=== PATIENT | male | born 1995 | race Caucasian/White ===

== ENCOUNTER 2017-01-16 13:15 | Emergency (ER) | payer OTHER ==
[~2017-01-16] VITALS: Ht 172.7 cm; Wt 69.6 kg
[2017-01-16 13:25] VITALS: TEMP 36.8; Ht 172.7 cm; Wt 69.6 kg
[2017-01-16 14:56] VITALS: PULSE 83
[2017-01-16 15:13] LABS: BASO % 0.4 %; BASO ABS # 0.03 K/uL (0-0.2); COMPLETE YES; EOS % 0.6 %; HEMATOCRIT 51.4 % (42-52); IG% 0.2 %; LYMPH % 28.8 %; LYMPH ABS # 2.37 K/uL (1.2-3.4); MEAN CELL VOLUME 92.3 fL (80-100); MEAN CORPUSCULAR HEMOGLOBIN 33.9 pg (25-34); MEAN CORPUSCULAR HGB CONC 36.8 g/dl (32-36); MEAN PLATELET VOLUME 9.8 fL (7.4-10.4); MONO % 7.6 %; NEUT % 62.4 %; PLATELET COUNT 277 K/uL (130-400); RED BLOOD COUNT 5.57 M/uL (4.7-6.1); WHITE BLOOD COUNT 8.24 K/uL (4.8-10.8)
[2017-01-16 15:44] LABS: ALKALINE PHOSPHATASE 73 U/L (45-117); ALT/SGPT 25 U/L (12-78); BLOOD UREA NITROGEN 16 mg/dl (7-18); BUN/CREATININE RATIO 13.4 (10-20); C-REACTIVE PROTEIN < 0.29 mg/dl (0-0.29); CALCIUM 9.9 mg/dl (8.5-10.1); CARBON DIOXIDE 31 mmol/L (21-32); CHLORIDE 104 mmol/L (98-107); GLUCOSE 93 mg/dl (70-99)
[2017-01-16 15:50] LABS: POTASSIUM 4.6 mmol/L (3.5-5.1); SODIUM 143 mmol/L (136-145)
[2017-01-16 15:55] LABS: AST/SGOT 13 U/L (15-37)
[2017-01-16 16:52] VITALS: BP 126/60; O2SAT 99
--- NOTE | 2017-01-16 17:43 | EMERGENCY ROOM VISIT NOTE ---
History Report prepared by Roverto: Sandhya Newton Under the Supervision of: Dr. Zach Viera M.D. First contact with patient: 14:27 Chief Complaint: GI ASSESSMENT Stated Complaint: BLOOD IN STOOL Nursing Triage Summary: triage note: pt reports diahrrea episode today with bright red blood. pt reports hx of ibs. History of Present Illness The patient is a 21 year old male who presents to the Emergency Room with complaints of an episode of bloody stool around 1200 today. He had a bowel movement at 1000 this morning which was normal. He went to lunch and afterwards he had a bowel movement which consisted of a small amount of diarrhea and bright red blood. He had no pain with his bowel movement. He denies any abdominal pain, urinary symptoms, nausea, vomiting, fever, or melena. 1.5 months ago he had a small spot of blood in his stool. He has no other medical problems. There is no history of IBS or Crohn's disease in the family. He is not on any blood thinners or other medications. He has sex with women exclusively. He has received the HPV vaccine. Source of History: patient Onset: 1200 today Position: other (rectal) Quality: other (bloody stool) Timing: other (episodic) Associated Symptoms: + diarrhea, No abdominal pain, No fevers, No melena, No nausea, No urinary symptoms, No vomiting Review of Systems See HPI for pertinent positives & negatives. A total of 10 systems reviewed and were otherwise negative. Family History No pertinent family history stated. Social History Smoking Status: Never Smoker Marital Status: single Occupation Status: student Current/Historical Medications No Active Prescriptions or Reported Meds Allergies Coded Allergies: No Known Allergies (Unverified , 01/16/17) Physical Exam Vital Signs Date Time Temp Pulse Resp B/P Pulse Ox O2 Delivery O2 Flow Rate FiO2 01/16/17 16:52 18 126/60 99 01/16/17 14:56 83 18 161/78 98 Room Air 01/16/17 13:25 36.8 90 18 132/84 97 Room Air Physical Exam Constitutional: Vital signs reviewed. Eyes: Pupils are equal round reactive to light. Conjunctiva are noninjected. ENT: Pharynx is clear without erythema or exudate. Mucous membranes are moist. Neck supple without meningeal signs. Respiratory: Clear to auscultation bilaterally. Breath sounds are equal bilaterally. Cardiovascular: Regular rate and rhythm. No rubs or gallops. GI: Soft, nondistended and nontender. Bowel sounds are present. Rectal: Fleshy appendage to the left lateral aspect which might be hemorrhoid vs skin tag or papilloma. No visible blood. Trace guaiac positive light brown stool. Musculoskeletal: No peripheral edema. No lower extremity tenderness. Integumentary: No cyanosis. Neurological: The patient is awake and alert. No focal deficits. Psychiatric: Normal affect. Medical Decision & Procedures Laboratory Results 01/16/17 15:00 Red Blood Count 5.57, Mean Corpuscular Volume 92.3, Mean Corpuscular Hemoglobin 33.9, Mean Corpuscular Hemoglobin Concent 36.8, Mean Platelet Volume 9.8, Neutrophils (%) (Auto) 62.4, Lymphocytes (%) (Auto) 28.8, Monocytes (%) (Auto) 7.6, Eosinophils (%) (Auto) 0.6, Basophils (%) (Auto) 0.4, Neutrophils # (Auto) 5.14, Lymphocytes # (Auto) 2.37, Monocytes # (Auto) 0.63, Eosinophils # (Auto) 0.05, Basophils # (Auto) 0.03 01/16/17 15:00 Test 01/16/17 15:00 White Blood Count 8.24 K/uL (4.8-10.8) Red Blood Count 5.57 M/uL (4.7-6.1) Hemoglobin 18.9 g/dL (14.0-18.0) Hematocrit 51.4 % (42-52) Mean Corpuscular Volume 92.3 fL (80-100) Mean Corpuscular Hemoglobin 33.9 pg (25-34) Mean Corpuscular Hemoglobin Concent 36.8 g/dl (32-36) Platelet Count 277 K/uL (130-400) Mean Platelet Volume 9.8 fL (7.4-10.4) Neutrophils (%) (Auto) 62.4 % Lymphocytes (%) (Auto) 28.8 % Monocytes (%) (Auto) 7.6 % Eosinophils (%) (Auto) 0.6 % Basophils (%) (Auto) 0.4 % Neutrophils # (Auto) 5.14 K/uL (1.4-6.5) Lymphocytes # (Auto) 2.37 K/uL (1.2-3.4) Monocytes # (Auto) 0.63 K/uL (0.11-0.59) Eosinophils # (Auto) 0.05 K/uL (0-0.5) Basophils # (Auto) 0.03 K/uL (0-0.2) RDW Standard Deviation 40.7 fL (36.4-46.3) RDW Coefficient of Variation 12.1 % (11.5-14.5) Immature Granulocyte % (Auto) 0.2 % Immature Granulocyte # (Auto) 0.02 K/uL (0.00-0.02) Anion Gap 8.0 mmol/L (3-11) Est Creatinine Clear Calc Drug Dose 94.2 ml/min Estimated GFR () 99.6 Estimated GFR (Non- 85.9 BUN/Creatinine Ratio 13.4 (10-20) Calcium Level 9.9 mg/dl (8.5-10.1) Total Bilirubin 1.0 mg/dl (0.2-1) Direct Bilirubin 0.2 mg/dl (0-0.2) Aspartate Amino Transf (AST/SGOT) 13 U/L (15-37) Alanine Aminotransferase (ALT/SGPT) 25 U/L (12-78) Alkaline Phosphatase 73 U/L (45-117) C-Reactive Protein < 0.29 mg/dl (0-0.29) Total Protein 8.6 gm/dl (6.4-8.2) Albumin 4.9 gm/dl (3.4-5.0) Lipase 144 U/L (73-393) Laboratory results as reviewed by me. ED Course 1428: The patient was evaluated in room C6. A complete history and physical exam was performed. 1624: I reevaluated the patient. He is resting comfortably. I reviewed the test results with him and his mother in detail. I discussed instructions for follow up care. They verbalized understanding and agreement. He was discharged home. Medical Decision This is a 21-year-old male presents with rectal bleeding. Differential diagnosis includes anal fissure, hemorrhoid, mass, inflammatory bowel disease, proctitis. I did perform a limited focused review of portions of the patient's old chart on the electronic medical record. The patient has had no prior visits. I did evaluate the patient as noted above. The patient presents with an episode of loose stools with some blood in the stools. Rectal examination shows trace guaiac positive brown stool. No masses are appreciated. There was a questionable hemorrhoid versus papilloma or skin tag in the lateral aspect of the anus. His exam is otherwise unremarkable. He has no abdominal pain. IV access was established. I did order and review the patient's blood work as noted in the electronic medical record. His mother asked that I included markers for inflammatory bowel disease and so ANCA studies were sent. He is not anemic. His labs are otherwise unremarkable. I did discuss the test results with the patient and his mother detail. They were advised follow with his regular doctor and a traffic counter for further evaluation. He was given return instructions and discharged in good condition. Impression Primary Impression: Rectal bleeding Scribe Attestation The scribe's documentation has been prepared under my direct and personally reviewed by me in its entirety. I confirm that the note above accurately reflects all work, treatment, procedures, and medical decision making performed by me. Departure Information Dispostion Home / Self-Care Prescriptions No Active Prescriptions or Reported Meds Referrals No Doctor, Assigned (PCP) Forms HOME CARE DOCUMENTATION FORM, IMPORTANT VISIT INFORMATION Patient Instructions GI Bleeding - [facility], [facility] Additional Instructions You have been examined and treated today on an emergency basis only. This is not a substitute for, or an effort to provide, complete comprehensive medical care. It is impossible to recognize and treat all injuries or illnesses in a single emergency department visit. It is therefore important that you follow up closely with your physician and/or gastroenterology. Call as soon as possible for an appointment. Return for worsening symptoms or if you develop fever, vomiting, abdominal pain, lightheadedness, black or tarry stools or any other concerning symptoms.
== END 2017-01-16 16:53 | disposition home or self-care (01) ==
LOC: C.EDB 13:17 → C.EDC 16:53
DX: K62.5 Hemorrhage of anus and rectum (principal)

== ENCOUNTER → 2017-08-08 | Outpatient (CLI) | payer OTHER ==
--- NOTE | 2017-08-08 09:45 | DIAGNOSTIC IMAGING REPORT ---
R FOOT MIN 3 VIEWS CLINICAL HISTORY: 21 years-old Male presenting with RIGHT FOOT PAIN. TECHNIQUE: Frontal, oblique, and lateral views the right foot were obtained. COMPARISON: None. FINDINGS: Nondisplaced intra-articular fracture at the base of the fifth metatarsal, which is transversely oriented and courses towards the articulation of the fifth metatarsal with the cuboid. No additional fracture is evident. No malalignment. Minimal overlying soft tissue swelling suggested. IMPRESSION: Findings consistent with nondisplaced intra-articular fracture of the base of the fifth metatarsal (pseudo-Melgar fracture). Electronically signed by: Janes Caba M.D. 08/08/2017 9:43 AM Dictated Date/Time: 08/08/2017 9:41 AM
== END | disposition home or self-care (01) ==
LOC: C.RDSM 12:25
PROVIDERS: ATTEND Family Medicine
DX: M79.671 Pain in right foot (principal)

== ENCOUNTER → 2017-08-22 | Outpatient (CLI) | payer OTHER ==
--- NOTE | 2017-08-22 10:21 | DIAGNOSTIC IMAGING REPORT ---
R FOOT MIN 3 VIEWS HISTORY: 21 years-old Male RIGHT FOOT FRACTURE follow-up study to assess fracture involving the base of the fifth metatarsal COMPARISON: Right foot radiographs 08/08/2017 TECHNIQUE: 3 views of the right foot FINDINGS: Subacute nondisplaced fracture involving the proximal metaphyseal fifth metatarsal is again seen with fracture line oriented transversely 1.4 cm distal to the fifth metatarsal styloid. The previously described intra-articular extension is not identified. There is been mild healing of the fracture from prior study. Remaining bony structures are intact. Soft tissues are unremarkable. No opaque foreign body. Pes planus deformity. IMPRESSION: 1. Mild healing of the nondisplaced transverse fracture of the proximal metaphyseal fifth metatarsal with unchanged alignment. 2. Pes planus deformity. The above report was generated using voice recognition software. It may contain grammatical, syntax or spelling errors. Electronically signed by: Vick Figueroa M.D. 08/22/2017 10:20 AM Dictated Date/Time: 08/22/2017 10:17 AM
== END | disposition home or self-care (01) ==
LOC: C.RDSM 10:45
PROVIDERS: ATTEND Family Medicine
DX: S92.354D Nondisplaced fracture of fifth metatarsal bone, right foot, subsequent encounter for fracture with routine healing (principal); X58.XXXD Exposure to other specified factors, subsequent encounter; M21.41 Flat foot [pes planus] (acquired), right foot

== ENCOUNTER → 2017-10-12 | Outpatient (CLI) | payer OTHER ==
--- NOTE | 2017-10-11 13:25 | DIAGNOSTIC IMAGING REPORT ---
R FOOT 2 VIEWS HISTORY: 21 years-old Male RIGHT FOOT FX subacute fracture involves the base of the right fifth metatarsal. Follow-up study. COMPARISON: Right foot radiographs 08/22/2017 and 08/08/2017. TECHNIQUE: AP and oblique internal rotation views of the right foot FINDINGS: Subacute appearing nondisplaced fracture is again noted involving the proximal metaphyseal fifth metatarsal which is oriented 1.4 cm distal to the fifth metatarsal styloid. There is mild progressive healing sclerosis. Remaining bony structures are intact and appear unremarkable. No significant degenerative changes or opaque foreign body. Soft tissues are unremarkable. IMPRESSION: Mild progressive healing of the subacute nondisplaced transverse fracture involving the proximal metaphyseal fifth metatarsal. The above report was generated using voice recognition software. It may contain grammatical, syntax or spelling errors. Electronically signed by: Vick Figueroa M.D. 10/11/2017 1:24 PM Dictated Date/Time: 10/11/2017 1:21 PM
== END | disposition home or self-care (01) ==
LOC: C.RDSM 12:09
PROVIDERS: ATTEND Family Medicine
DX: S92.354D Nondisplaced fracture of fifth metatarsal bone, right foot, subsequent encounter for fracture with routine healing (principal); X58.XXXD Exposure to other specified factors, subsequent encounter